=== PATIENT | male | born 1990 | race Caucasian/White ===

== ENCOUNTER 2018-03-13 11:48 | Emergency (ER) | payer SELFPAY ==
[~2018-03-13] VITALS: Ht 170.2 cm; Wt 82.6 kg
[2018-03-13 11:53] VITALS: Ht 170.2 cm; Wt 82.6 kg
[2018-03-13 14:55] VITALS: BP 134/74
== END 2018-03-13 14:55 | disposition home or self-care (01) ==
LOC: ED 11:48
DX: F11.23 Opioid dependence with withdrawal (principal)